=== PATIENT | male | born 1970 ===

== ENCOUNTER 2018-03-27 19:25 | Emergency (ER) | payer SELFPAY ==
[~2018-03-27] VITALS: Ht 188 cm; Wt 76.0 kg
[2018-03-27 21:52] VITALS: BP 125/89
== END 2018-03-27 22:04 | disposition left against medical advice (07) ==
LOC: ED 21:58
DX: M72.2 Plantar fascial fibromatosis (principal); M79.662 Pain in left lower leg; M79.89 Other specified soft tissue disorders
CPT/HCPCS: 99283